=== PATIENT | male | born 1975 | race Hispanic/Latino ===

== ENCOUNTER 2017-07-29 22:13 | Emergency (ER) | payer SELFPAY ==
[2017-07-29 22:56] VITALS: BP 139/91
[2017-07-29] MEDS ORDERED: TYLENOL PO ONE (22:58)
--- NOTE | 2017-07-30 00:16 | XRay Report ---
FINAL REPORT EXAM: XR HIP 2-3V RT HISTORY: HIP PAIN TECHNIQUE: An AP view of the pelvis was obtained along with a lateral view of the right hip. FINDINGS: The right hip joint appears normal. There is no evidence acute fracture or soft tissue injury. The left hip appears normal. There is chronic deformity of the left hemipelvis. The soft tissues are unremarkable. IMPRESSION: Unremarkable right hip. No acute process identified.
[2017-07-30] MEDS ORDERED: MOTRIN PO ONE (02:10)
--- NOTE | 2017-07-30 02:17 | Emergency Department Report ---
ED Lower Extremity HPI - General Chief Complaint: Extremity Injury, Lower Stated Complaint: RT HIP PAIN Time Seen by Provider: 07/30/17 02:09 Source: patient, family Mode of arrival: Ambulatory Limitations: No Limitations - History of Present Illness Initial Comments: This is a 42-year-old male nontoxic, well nourished in appearance, no acute signs of distress presents to the ED with c/o of right hip pain x4 days. Patient denies any trauma. Patient stated 4 days ago his car broke down and he walked about 4 miles and towards the end he started to get a sharp pain to the region. Patient denies any numbness, tingling, fever, joint swelling, joint redness, chest pain, shortness of breath. Allergies includes PCN. Denies PMH./ MD Complaint: hip injury -: Gradual, days(s) (4) Injury: Hip: Right Place: street/outdoors Severity: mild Severity scale (0 -10): 8 Improves With: nothing Worsens With: nothing Context: walking Associated Symptoms: ambulatory. denies: snap/pop sensation, swelling, numbness , tingling, unable to bear weight, able to partially bear weight - Related Data Previous Rx's Medication Instructions Recorded Last Taken Type Ibuprofen [Motrin] 800 mg PO Q8HR PRN #20 tablet 10/14/15 Unknown Rx Cyclobenzaprine [Flexeril] 10 mg PO QHS PRN #5 tablet 07/30/17 Unknown Rx Ibuprofen [Motrin] 600 mg PO Q8H PRN #30 tablet 07/30/17 Unknown Rx Allergies Allergy/AdvReac Type Severity Reaction Status Date / Time Penicillins Allergy Hives Verified 10/14/15 12:33 ED Review of Systems ROS: Stated complaint: RT HIP PAIN Other details as noted in HPI Constitutional: denies: chills, fever Eyes: denies: eye pain, eye discharge, vision change ENT: denies: ear pain, throat pain Respiratory: denies: cough, shortness of breath, wheezing Cardiovascular: denies: chest pain, palpitations Endocrine: no symptoms reported Gastrointestinal: denies: abdominal pain, nausea, diarrhea Genitourinary: denies: urgency, dysuria Musculoskeletal: denies: back pain, joint swelling, arthralgia Skin: denies: rash, lesions Neurological: denies: headache, weakness, paresthesias Psychiatric: denies: anxiety, depression Hematological/Lymphatic: denies: easy bleeding, easy bruising ED Past Medical Hx - Past Medical History Previous Medical History?: Yes Hx Psychiatric Treatment: Yes (depression) - Surgical History Past Surgical History?: No - Social History Smoking Status: Current Every Day Smoker Substance Use Type: Alcohol - Medications Home Medications: Home Medications Medication Instructions Recorded Confirmed Last Taken Type Ibuprofen [Motrin] 800 mg PO Q8HR PRN #20 tablet 10/14/15 Unknown Rx Cyclobenzaprine [Flexeril] 10 mg PO QHS PRN #5 tablet 07/30/17 Unknown Rx Ibuprofen [Motrin] 600 mg PO Q8H PRN #30 tablet 07/30/17 Unknown Rx ED Physical Exam - General Limitations: No Limitations General appearance: alert, in no apparent distress - Head Head exam: Present: atraumatic, normocephalic, normal inspection - Eye Eye exam: Present: normal appearance, PERRL, EOMI. Absent: scleral icterus, conjunctival injection, nystagmus, periorbital swelling, periorbital tenderness Pupils: Present: normal accommodation - ENT ENT exam: Present: normal exam, normal orophraynx, mucous membranes moist, TM's normal bilaterally, normal external ear exam - Neck Neck exam: Present: normal inspection, full ROM. Absent: tenderness, meningismus, lymphadenopathy, thyromegaly - Respiratory Respiratory exam: Present: normal lung sounds bilaterally. Absent: respiratory distress, wheezes, rales, rhonchi, stridor, chest wall tenderness, accessory muscle use, decreased breath sounds, prolonged expiratory - Cardiovascular Cardiovascular Exam: Present: regular rate, normal rhythm, normal heart sounds. Absent: irregular rhythm, systolic murmur, diastolic murmur, rubs, gallop - GI/Abdominal GI/Abdominal exam: Present: soft, normal bowel sounds. Absent: distended, tenderness, guarding, rebound, rigid, diminished bowel sounds - Rectal Rectal exam: Present: deferred - Extremities Exam Extremities exam: Present: normal inspection, full ROM, tenderness, normal capillary refill. Absent: pedal edema, joint swelling, calf tenderness - Expanded Lower Extremity Exam Right Hip exam: Present: normal inspection, full ROM, tenderness, external rotation, internal rotation, pelvic stability. Absent: swelling, abrasion, laceration, ecchymosis, deformity, crepidus, dislocation, erythema, shortening Upper Leg exam: Present: normal inspection, full ROM. Absent: tenderness, swelling, abrasion, laceration, ecchymosis, deformity, crepidus, dislocation, erythema Knee exam: Present: normal inspection, full ROM Lower Leg exam: Present: normal inspection, full ROM Ankle exam: Present: normal inspection, full ROM Foot/Toe exam: Present: normal inspection, full ROM Neuro vascular tendon exam: Present: no vascular compromise. Absent: pulse deficit, abnormal cap refill, motor deficit, sensory deficit, tendon deficit, extremity cold to touch, pallor, abnormal 2-point discrimination, decreased fine /light touch, foot drop, peroneal nerve deficit, significant pain with passive ROM of distal joint Gait: Positive: observed and normal - Back Exam Back exam: Present: normal inspection, full ROM, paraspinal tenderness (lumbar region). Absent: tenderness, CVA tenderness (R), CVA tenderness (L), muscle spasm, vertebral tenderness, rash noted - Neurological Exam Neurological exam: Present: alert, oriented X3, CN II-XII intact, normal gait, reflexes normal - Psychiatric Psychiatric exam: Present: normal affect, normal mood - Skin Skin exam: Present: warm, dry, intact, normal color. Absent: rash ED Course Vital Signs 07/29/17 22:51 Temperature 98 F Pulse Rate 94 H Respiratory 16 Rate Blood Pressure 139/91 O2 Sat by Pulse 97 Oximetry - Reevaluation(s) Reevaluation #1: 07/30/17 02:19 Patient is speaking in full sentences with no signs of distress noted. ED Lower Extremity MDM - Medical Decision Making This is a 42-year-old male that presents with low back strain and right hip strain. Patient is stable and was examined by me. X-ray of right hip obtained and dictated by radiologist with normal exam. Patient is notified of x-ray results were noted by the patient. Due to patient's to having symptoms of paraspinal pain and muscular hip pain I will treat patient with Flexeril and Motrin. Patient was instructed to not operate any machinery while taking Flexeril due to drowsiness. Patient was instructed Follow-up with a primary care doctor in 3-5 days or if symptoms worsen and continue return to emergency room as soon as possible. At time time of discharge, the patient does not seem toxic or ill in appearance. No acute signs of distress noted. Patient agrees to discharge treatment plan of care. No further questions noted by the patient. Critical care attestation.: If time is entered above; I have spent that time in minutes in the direct care of this critically ill patient, excluding procedure time. ED Disposition Clinical Impression: Strain of right hip Qualifiers: Encounter type: initial encounter Qualified Code(s): S76.011A - Strain of muscle, fascia and tendon of right hip, initial encounter Low back strain Qualifiers: Encounter type: initial encounter Qualified Code(s): S39.012A - Strain of muscle, fascia and tendon of lower back, initial encounter Disposition: TO HOME OR SELFCARE Is pt being admited?: No Does the pt Need Aspirin: No Condition: Stable Instructions: Arthralgia (ED), Low Back Strain (ED), Ibuprofen (By mouth), Cyclobenzaprine (By mouth) Additional Instructions: Follow-up with your primary care doctor in 3-5 days or if symptoms worsen such as bladder or bowel stability, chest pain, short of breath, numbness or tingling sensation in extremities, headache, dizziness, visual changes, nausea vomiting, or abdominal pain, return back to emergency room as was possible. Take ibuprofen and Flexeril as prescribed. Do not operate heavy machinery while taking Flexeril due to sedation Prescriptions: Cyclobenzaprine [Flexeril] 10 mg PO QHS PRN #5 tablet PRN Reason: Muscle Spasm Ibuprofen [Motrin] 600 mg PO Q8H PRN #30 tablet PRN Reason: Pain Referrals: PAWAN RUTHERFORD MD [Primary Care Provider] - 3-5 Days MEERA APODACA MD [Staff Physician] - 3-5 Days [facility] [Outside] - 3-[address] [facility] [Outside] - 3-5 Days DIANNE FLEMING MD [Staff Physician] - 3-5 Days Forms: Work/School Release Form(ED)
== END 2017-07-30 02:38 | disposition home or self-care (01) ==
LOC: ED 22:13
DX: S76.011A Strain of muscle, fascia and tendon of right hip, initial encounter (principal); S39.012A Strain of muscle, fascia and tendon of lower back, initial encounter; Z88.0 Allergy status to penicillin; F32.9 Major depressive disorder, single episode, unspecified; F17.200 Nicotine dependence, unspecified, uncomplicated; X50.1XXA Overexertion from prolonged static or awkward postures, initial encounter; Y93.89 Activity, other specified; Y92.89 Other specified places as the place of occurrence of the external cause; Y99.8 Other external cause status
CPT/HCPCS: 99283

== ENCOUNTER 2019-05-16 23:21 | Emergency (ER) | payer SELFPAY ==
[2019-05-17] MEDS ORDERED: dexAMETHasone 20 MG/5 ML VIAL IM ONE (03:26)
[2019-05-17] MEDS ORDERED: METOCLOPRAMIDE 10 MG TAB PO ONE (03:26)
[2019-05-17] MEDS ORDERED: diphenhydrAMINE 25 MG CAP PO ONE (03:26)
[2019-05-17] MEDS ORDERED: ACETAMINOPHEN 500 MG TAB PO ONE (03:26)
--- NOTE | 2019-05-17 03:33 | Emergency Department Report ---
ED Headache HPI - General Chief Complaint: Headache Stated Complaint: CAN'T FOCUS Time Seen by Provider: 05/17/19 03:26 - History of Present Illness Initial Comments: Patient is a 43-year-old white male who presents for occipital headache radiating to the left frontal 5/10 sharp this is usual location and intensity of headache for this patient for last 10 years pain usually relieved by NSAIDs patient is to NSAIDs at this time there is mild photophobia no decrease in vision no nausea vomiting no fever or chills patient denies trauma or injury or fall. Timing/Duration: 1 week Quality: moderate Head Injury Location: occipital Recent Head Trauma: no recent headache/trauma Associated Symptoms: facial pain. denies: confusion, fatigue, fever/chills, flushing, nausea/vomiting, nasal congestion, nasal drainage, numbness in legs/feet, seizures, sinus infection, stiff neck, vision changes Allergies/Adverse Reactions: Allergies Penicillins Allergy (Verified 10/14/15 12:33) Hives Home Medications: Ambulatory Orders Ibuprofen [Motrin] 800 mg PO Q8HR PRN #20 tablet 10/14/15 Cyclobenzaprine [Flexeril] 10 mg PO QHS PRN #5 tablet 07/30/17 Ibuprofen [Motrin] 600 mg PO Q8H PRN #30 tablet 07/30/17 Acetaminophen [Acetaminophen TAB] 1,000 mg PO Q6H PRN #30 tablet 05/17/19 Metoclopramide [Reglan] 10 mg PO Q6H PRN #30 tab 05/17/19 diphenhydrAMINE [Benadryl CAP] 25 mg PO Q6HR PRN #30 capsule 05/17/19 ED Review of Systems ROS: Stated complaint: CAN'T FOCUS Other details as noted in HPI Constitutional: denies: chills, fever Eyes: denies: eye pain, eye discharge, vision change ENT: denies: ear pain, throat pain Respiratory: denies: cough, shortness of breath, wheezing Cardiovascular: denies: chest pain, palpitations Endocrine: no symptoms reported Gastrointestinal: denies: abdominal pain, nausea, diarrhea Genitourinary: denies: urgency, dysuria Musculoskeletal: denies: back pain, joint swelling, arthralgia Skin: denies: rash, lesions Neurological: headache. denies: weakness, numbness, paresthesias, confusion, abnormal gait, vertigo Psychiatric: denies: anxiety, depression Hematological/Lymphatic: denies: easy bleeding, easy bruising ED Past Medical Hx - Past Medical History Previous Medical History?: Yes Hx Renal Disease: Yes (kidney failure no longer on diaylis) Hx Psychiatric Treatment: Yes (depression) Additional medical history: Hep c - Surgical History Past Surgical History?: Yes Additional Surgical History: vas cath and removal - Social History Smoking Status: Current Every Day Smoker Substance Use Type: Alcohol - Medications Home Medications: Home Medications Medication Instructions Recorded Confirmed Last Taken Type Ibuprofen [Motrin] 800 mg PO Q8HR PRN #20 tablet 10/14/15 Unknown Rx Cyclobenzaprine [Flexeril] 10 mg PO QHS PRN #5 tablet 07/30/17 Unknown Rx Ibuprofen [Motrin] 600 mg PO Q8H PRN #30 tablet 07/30/17 Unknown Rx Acetaminophen [Acetaminophen TAB] 1,000 mg PO Q6H PRN #30 tablet 05/17/19 Unknown Rx Metoclopramide [Reglan] 10 mg PO Q6H PRN #30 tab 05/17/19 Unknown Rx diphenhydrAMINE [Benadryl CAP] 25 mg PO Q6HR PRN #30 capsule 05/17/19 Unknown Rx ED Physical Exam - General Limitations: No Limitations General appearance: alert, in no apparent distress - Head Head exam: Present: normocephalic, normal inspection - Expanded Head Exam Expanded Head exam: Absent: laceration, abrasion, contusion, hematoma, racoon eyes, bass's sign, general tenderness, tenderness of temporal artery - Eye Eye exam: Present: normal appearance, PERRL, EOMI Pupils: Present: normal accommodation - ENT ENT exam: Present: normal orophraynx, mucous membranes moist, TM's normal bilaterally, normal external ear exam - Neck Neck exam: Present: normal inspection, tenderness, full ROM. Absent: meningismus, lymphadenopathy, thyromegaly - Expanded Neck Exam Expanded Neck exam: Absent: tenderness (no posterior vertebral point tenderness ), midline deformity, anterior neck swelling, thyroid mass, carotid bruit, tracheal deviation - Respiratory Respiratory exam: Present: normal lung sounds bilaterally. Absent: respiratory distress, wheezes, stridor, chest wall tenderness - Cardiovascular Cardiovascular Exam: Present: regular rate, normal rhythm, normal heart sounds. Absent: systolic murmur, diastolic murmur, rubs, gallop - GI/Abdominal GI/Abdominal exam: Present: soft, normal bowel sounds. Absent: distended, tenderness, guarding, rebound, rigid, bruit, hernia - Rectal Rectal exam: Present: deferred - Extremities Exam Extremities exam: Present: normal inspection, full ROM, normal capillary refill. Absent: tenderness, pedal edema, joint swelling, calf tenderness - Back Exam Back exam: Present: normal inspection, full ROM. Absent: tenderness, CVA tenderness (R), CVA tenderness (L), muscle spasm, paraspinal tenderness, vertebral tenderness (no posterior vertebral point tenderness ), rash noted - Expanded Back Exam Expanded Back exam: Absent: saddle anesthesia Back exam: Negative Straight Leg Raising: Left, Right - Neurological Exam Neurological exam: Present: alert, oriented X3, CN II-XII intact, normal gait, reflexes normal. Absent: motor sensory deficit - Expanded Neurological Exam Expanded Neurological exam: Absent: ataxia Patient oriented to: Present: person, place, time Speech: Present: fluid speech Cranial nerves: EOM's Intact: Normal, Gag Reflex: Normal, Tongue Deviation: Normal, Nystagmus: Normal, Facial Sensation: Normal Cerebellar function: Finger to Nose: Normal, Heel to Brown: Normal, Romberg: Normal Upper motor neuron: Talon Neglect: Normal, Pronator Drift: Normal, Babinski Sign: Normal, Sensory Extinction: Normal Sensory exam: Upper Extremity Light Touch: Normal, Upper Extremity Pin Prick: Normal, Upper Extremity Temperature: Normal, UE 2 Point Discrimination: Normal, Lower Extremity Light Touch: Normal, Lower Extremity Pin Prick: Normal, Lower Extremity Temperature: Normal, LE 2 Point Discrimination: Normal Motor strength exam: RUE: 5, LUE: 5, RLE: 5, LLE: 5 DTR: bicep (R): 2+, bicep (L): 2+, ankle (R): 2+, ankle (L): 2+ Best Eye Response (Cornel): (4) open spontaneously Best Motor Response ([place]): (6) obeys commands Best Verbal Response (Cornel): (5) oriented [place] Total: 15 - Psychiatric Psychiatric exam: Present: normal affect, normal mood - Skin Skin exam: Present: warm, dry, intact, normal color. Absent: rash ED Course Vital Signs 05/17/19 00:03 Temperature 97.8 F Pulse Rate 89 Respiratory 18 Rate Blood Pressure 114/74 O2 Sat by Pulse 97 Oximetry ED Medical Decision Making - Medical Decision Making x headache there is no neuro deficit pain is reduced , pt states ready for discharge plan: dc to home with rx for Tylenol, bendadryl reglan follow up with pcp in 2-3 days pt given referral to [facility] pt will be dc'd to home in stable condition at this time Critical care attestation.: If time is entered above; I have spent that time in minutes in the direct care of this critically ill patient, excluding procedure time. ED Disposition Clinical Impression: Headache Qualifiers: Headache type: other headache syndrome Qualified Code(s): G44.89 - Other headache syndrome Disposition: DC-01 TO HOME OR SELFCARE Is pt being admited?: No Does the pt Need Aspirin: No Condition: Stable Instructions: Acute Headache (ED) Prescriptions: Acetaminophen [Acetaminophen TAB] 1,000 mg PO Q6H PRN #30 tablet PRN Reason: Headache diphenhydrAMINE [Benadryl CAP] 25 mg PO Q6HR PRN #30 capsule PRN Reason: Headache Metoclopramide [Reglan] 10 mg PO Q6H PRN #30 tab PRN Reason: Headache Referrals: [facility] [Outside] - 3-5 Days ERYN WRIGHT MD [Referring] - 3-5 Days Forms: Work/School Release Form(ED) Time of Disposition: 03:42
[2019-05-17 04:00] VITALS: BP 118/68
== END 2019-05-17 03:58 | disposition home or self-care (01) ==
LOC: ED 23:21
DX: G44.89 Other headache syndrome (principal); Z88.0 Allergy status to penicillin
CPT/HCPCS: 96372; 99282; J1100